=== PATIENT | female | born 1990 | race Hispanic/Latino ===

== ENCOUNTER 2021-09-20 19:31 | Emergency (ER) | payer BC | END 2021-09-20 22:40 | disposition home or self-care (01) | LOC: ERS 19:31 | DX: G44.309 Post-traumatic headache, unspecified, not intractable (principal); F07.81 Postconcussional syndrome; E11.9 Type 2 diabetes mellitus without complications; Z79.899 Other long term (current) drug therapy | CPT/HCPCS: 70450 ==